=== PATIENT | male | born 1980 | race American Indian/Alaskan Native ===

== ENCOUNTER 2016-12-04 11:27 | Observation (INO) | payer BC ==
[~2016-12-04] VITALS: Ht 175.3 cm; Wt 112.2 kg
[~2016-12-04 11:27] MED LIST: ALPR-475 PO; BUTA1CAP57; DEXAMETHASONE 4 MG/ML, 1ML ONE; HYDR-3240 PO; ONDANSETRON 2MG/ML, 2ML ONE; OXYC-229 PO; PROPOFOL 10 MG/ML, 20ML ONE
[2016-12-04] MEDS ORDERED: SODIUM CHLORIDE 0.9% 1,000ML IVBOLUS ONE ×2 (11:30→14:00)
[2016-12-04] MEDS ORDERED: ONDANSETRON 2MG/ML, 2ML IVPush ONE ×2 (11:30→14:30)
[2016-12-04] MEDS ORDERED: SODIUM CHLORIDE FLUSH 10ML SYR IVF ONE (11:30)
[2016-12-04] MEDS ORDERED: FAMOTIDINE 20 MG/2 ML IVP ONE (11:30)
[2016-12-04] MEDS ORDERED: CIPR250T27 PO (11:42)
[2016-12-04] MEDS ORDERED: ONDANSETRON 2MG/ML, 2ML ONE ×3 (11:47→14:17)
[2016-12-04] MEDS ORDERED: FAMOTIDINE 20 MG/2 ML ONE (11:47)
[2016-12-04 12:02] LABS: ASPARTATE AMINO TRANSFERASE 27 U/L (15-37); BLOOD UREA NITROGEN 21 mg/dL (7-18)
[2016-12-04 12:43] LABS: DIFF TOTAL CELLS COUNTED 100 CELL DIFF
[2016-12-04 12:44] LABS: VERIFY COUNTS? YES
[2016-12-04] MEDS ORDERED: SODIUM CHLORIDE 0.9% 1,000 ML IV ONE (13:48)
[2016-12-04] MEDS ORDERED: IBUPROFEN 200 MG TABLET PO ONE (14:00)
[2016-12-04] MEDS ORDERED: ACETAMINOPHEN 500 MG TABLET PO ONE (14:00)
[2016-12-04] MEDS ORDERED: CEFTRIAXONE PMX 1GM/50ML 50 ML IVPB ONE (14:00)
[2016-12-04] MEDS ORDERED: MORPHINE SULFATE 4 MG/ML, 1ML ONE ×2 (14:01→16:54)
[2016-12-04] MEDS ORDERED: IBUPROFEN 200 MG TABLET ONE (14:02)
[2016-12-04] MEDS ORDERED: CEFTRIAXONE PMX 1GM/50ML 50 ML ONE (14:03)
[2016-12-04] MEDS: MORPHINE SULFATE 4 MG/ML, 1ML IVPush PRN ×2 (14:57→16:56)
[2016-12-04] MEDS ORDERED: FENTANYL PF 250 MCG/5ML ONE (18:03)
[2016-12-04] MEDS ORDERED: MIDAZOLAM 1 MG/ML, 2ML ONE (18:03)
[2016-12-04] MEDS ORDERED: OPIUM/BELLADONNA SUPP.RECT 16.2-30 MG ONE (18:15)
[2016-12-04] MEDS ORDERED: OMNIPAQUE 350 MG/ML, 50 ML BOTTLE ONE (19:01)
[2016-12-04] MEDS ORDERED: OXYcodone 5 MG/5 ML ORAL.SOL UDC ONE (19:33)
[2016-12-04] MEDS ORDERED: FENTANYL PF 100 MCG/2ML ONE (19:33)
[2016-12-04] MEDS: FENTANYL PF 100 MCG/2ML IV PRN ×2 (19:40→19:47)
[2016-12-04] MEDS: OXYcodone 5 MG/5 ML ORAL.SOL UDC PO PRN ×2 (19:40→19:50)
[2016-12-04] MEDS: HYDROmorphone 2 MG/ML, 1ML IVPush PRN ×2 (21:00→21:48)
[2016-12-04] MEDS ORDERED: DIPHENHYDRAMINE 25 MG CAPSULE PO PRN (21:00)
[2016-12-04] MEDS ORDERED: OPIUM/BELLADONNA SUPP.RECT 16.2-30 MG PR PRN (21:00)
[2016-12-04] MEDS ORDERED: ONDANSETRON 2MG/ML, 2ML IVPush PRN (21:00)
[2016-12-04] MEDS: LACTATED RINGERS 1,000 ML IV SCH (21:48)
[2016-12-04] MEDS: KETOROLAC 10MG TABLET PO PRN (22:02)
[2016-12-05] VITALS (8 sets, daily range): BP systolic 137–148; BP diastolic 8–91
[2016-12-05] MEDS: HYDROmorphone 2 MG/ML, 1ML IVPush PRN ×4 (00:43→18:42)
[2016-12-05] MEDS: KETOROLAC 10MG TABLET PO PRN ×2 (05:17→19:33)
[2016-12-05] MEDS: LACTATED RINGERS 1,000 ML IV SCH ×2 (05:18→13:55)
[2016-12-05] MEDS: OXYcodone/APAP 10/325MG TABLET PO PRN ×2 (08:43→12:37)
[2016-12-05] MEDS: DOCUSATE 100 MG CAPSULE PO SCH (08:43)
[2016-12-05] MEDS: PHENAZOPYRIDINE 200 MG TABLET PO PRN ×2 (11:26→19:33)
[2016-12-05] MEDS ORDERED: HYDROmorphone 1 MG/ML, 1ML ONE (13:39)
[2016-12-05] MEDS: TAMSULOSIN 0.4 MG CAP.ER.24H PO SCH (13:55)
[2016-12-05] MEDS ORDERED: CEFTRIAXONE PMX 2GM/50ML 50 ML IV SCH (14:00)
[2016-12-05] MEDS: HYDROmorphone 2MG TABLET PO PRN (16:44)
[2016-12-05] MEDS: MORPHINE SULFATE 4 MG/ML, 1ML IVPush PRN (22:16)
[2016-12-06 02:22] VITALS: BP 135/90
[2016-12-06] MEDS: MORPHINE SULFATE 4 MG/ML, 1ML IVPush PRN ×2 (03:11→08:03)
[2016-12-06] MEDS ORDERED: TAMS0.4C2 PO (03:39)
[2016-12-06] MEDS ORDERED: PHEN-418 PO (03:40)
[2016-12-06] MEDS ORDERED: CIPR500T87 PO (03:41)
[2016-12-06] MEDS: KETOROLAC 10MG TABLET PO PRN (04:15)
[2016-12-06] MEDS: PHENAZOPYRIDINE 200 MG TABLET PO PRN (04:44)
[2016-12-06] MEDS: LACTATED RINGERS 1,000 ML IV SCH ×3 (08:05→10:22)
[2016-12-06] MEDS: DOCUSATE 100 MG CAPSULE PO SCH (09:00)
[2016-12-06 09:06] VITALS: BP 143/98
[2016-12-06] MEDS: TAMSULOSIN 0.4 MG CAP.ER.24H PO SCH (09:06)
[2016-12-06] MEDS: HYDROmorphone 2MG TABLET PO PRN (11:13)
== END 2016-12-06 11:30 | disposition home or self-care (01) ==
LOC: OR 16:48 → INTOOBSV 16:49 → EDIP 16:49 → OR 17:09 → 4NOR 20:25 → DCLOUNGE 12-06 11:19
PROVIDERS: ADMIT Urology; ATTEND Urology
DX: N20.1 Calculus of ureter (principal); G89.29 Other chronic pain; R11.2 Nausea with vomiting, unspecified; Z90.49 Acquired absence of other specified parts of digestive tract
CPT/HCPCS: 36415; 52332; 71010; 74176; 74420; 80053; 81003; 83605; 85025; 87040; 87324; 89055; 96365; 96366; 96375; 96376; 99285; C1758; C1769; C2617; G0378; J0696; J1100; J1170; J2250; J2405; J2704; J3010; J7030; J7120; Q9967; S0028

== ENCOUNTER 2016-12-08 09:39 | Emergency (ER) | payer BC ==
[~2016-12-08] VITALS: Ht 175.3 cm; Wt 102.5 kg
[~2016-12-08 09:39] MED LIST changes: +CIPR250T27 PO; +CIPR500T87 PO; -DEXAMETHASONE 4 MG/ML, 1ML ONE; -ONDANSETRON 2MG/ML, 2ML ONE; +PHEN-418 PO; -PROPOFOL 10 MG/ML, 20ML ONE; +TAMS0.4C2 PO
[2016-12-08] MEDS ORDERED: ONDANSETRON 2MG/ML, 2ML ONE (10:07)
[2016-12-08] MEDS ORDERED: HYDROmorphone 1 MG/ML, 1ML ONE (10:07)
[2016-12-08] MEDS ORDERED: SODIUM CHLORIDE FLUSH 10ML SYR IVF ONE (10:30)
[2016-12-08] MEDS ORDERED: ONDANSETRON 2MG/ML, 2ML IVPush ONE (10:30)
[2016-12-08] MEDS ORDERED: SODIUM CHLORIDE 0.9% 1,000ML IVBOLUS ONE (10:30)
[2016-12-08] MEDS ORDERED: HYDROmorphone 1 MG/ML, 1ML IVPush PRN (10:30)
[2016-12-08 10:42] LABS: ASPARTATE AMINO TRANSFERASE 22 U/L (15-37); BLOOD UREA NITROGEN 16 mg/dL (7-18)
[2016-12-08] MEDS ORDERED: KETOROLAC 30 MG/1 ML ONE (12:15)
[2016-12-08] MEDS ORDERED: KETOROLAC 30 MG/1 ML IVPush ONE (12:30)
[2016-12-08 12:56] VITALS: BP 121/79
== END 2016-12-08 12:59 | disposition home or self-care (01) ==
LOC: ED 12:30
DX: N20.1 Calculus of ureter (principal); R10.9 Unspecified abdominal pain; M54.2 Cervicalgia; G89.29 Other chronic pain; Z90.49 Acquired absence of other specified parts of digestive tract; Z88.5 Allergy status to narcotic agent
CPT/HCPCS: 36415; 76770; 80053; 81001; 85025; 87086; 96361; 96374; 96375; 99285; J1170; J1885; J2405; J7030

== ENCOUNTER 2016-12-11 16:05 | Inpatient (IN) | payer BC ==
[~2016-12-11] VITALS: Ht 175.3 cm; Wt 101.0 kg
[2016-12-11] MEDS ORDERED: ONDANSETRON 2MG/ML, 2ML IVPush ONE (16:30)
[2016-12-11] MEDS ORDERED: SODIUM CHLORIDE FLUSH 10ML SYR IVF ONE (16:30)
[2016-12-11] MEDS ORDERED: HYDROmorphone 1 MG/ML, 1ML ONE ×2 (17:10→18:29)
[2016-12-11] MEDS ORDERED: ONDANSETRON 2MG/ML, 2ML ONE (17:10)
[2016-12-11] MEDS: HYDROmorphone 1 MG/ML, 1ML IVPush PRN ×2 (17:13→18:35)
[2016-12-11 17:24] LABS: BLOOD UREA NITROGEN 15 mg/dL (7-18)
[2016-12-11 17:28] LABS: ASPARTATE AMINO TRANSFERASE 34 U/L (15-37)
[2016-12-11] MEDS ORDERED: SODIUM CHLORIDE 0.9% 1,000ML IVBOLUS ONE (18:30)
[2016-12-11] MEDS ORDERED: CEPHALEXIN 500 MG CAPSULE ONE (19:41)
[2016-12-11] MEDS ORDERED: SODIUM CHLORIDE FLUSH 10ML SYR IVF PRN (20:00)
[2016-12-11] MEDS ORDERED: OXYcodone/APAP 10/325MG TABLET PO PRN (20:30)
[2016-12-11] MEDS ORDERED: ACETAMINOPHEN 325 MG TABLET PO PRN (20:30)
[2016-12-11] MEDS ORDERED: BISACODYL 10 MG SUPP PR PRN (20:30)
[2016-12-11] MEDS ORDERED: ONDANSETRON 2MG/ML, 2ML IVPush PRN (20:30)
[2016-12-11] MEDS ORDERED: POLYETHYLENE GLYCOL 17 GM PACKET PO PRN (20:30)
[2016-12-11 20:47] VITALS: BP 132/89
[2016-12-11] MEDS: SODIUM CHLORIDE 0.9% 1,000 ML IV SCH (20:56)
[2016-12-11] MEDS: PHENAZOPYRIDINE 200 MG TABLET PO SCH (21:00)
[2016-12-11 21:07] VITALS: BP 134/91
[2016-12-11] MEDS: CIPROFLOXACIN 500 MG TABLET PO SCH (21:29)
[2016-12-11] MEDS: HYDROmorphone 2 MG/ML, 1ML IVPush PRN (21:56)
[2016-12-12] MEDS: HYDROmorphone 2 MG/ML, 1ML IVPush PRN ×5 (02:13→19:34)
[2016-12-12 03:50] VITALS: BP 108/63
[2016-12-12] MEDS: SODIUM CHLORIDE 0.9% 1,000 ML IV SCH ×3 (04:10→20:20)
[2016-12-12 05:26] LABS: ASPARTATE AMINO TRANSFERASE 24 U/L (15-37); BLOOD UREA NITROGEN 15 mg/dL (7-18)
[2016-12-12 07:08] VITALS: BP 121/79
[2016-12-12] MEDS: CIPROFLOXACIN 500 MG TABLET PO SCH (08:53)
[2016-12-12] MEDS: TAMSULOSIN 0.4 MG CAP.ER.24H PO SCH (08:58)
[2016-12-12] MEDS: SENNA/DOCUSATE TABLET PO SCH ×2 (08:58→16:49)
[2016-12-12] MEDS: PHENAZOPYRIDINE 200 MG TABLET PO SCH ×3 (08:58→23:22)
[2016-12-12] MEDS ORDERED: CEFTRIAXONE PMX 2GM/50ML 50 ML IV SCH (13:00)
[2016-12-12] MEDS ORDERED: CEFTRIAXONE 2 GM in SODIUM CHLORIDE 0.9% 50 ML IV SCH (13:00)
[2016-12-12] MEDS ORDERED: MIDAZOLAM 1 MG/ML, 2ML ONE (13:28)
[2016-12-12] MEDS ORDERED: FENTANYL PF 250 MCG/5ML ONE (13:29)
[2016-12-12] MEDS ORDERED: CEFAZOLIN 1,000 MG ONE (14:37)
[2016-12-12] MEDS ORDERED: SUCCINYLCHOLINE 20 MG/ML, 10ML ONE (14:37)
[2016-12-12] MEDS ORDERED: ONDANSETRON 2MG/ML, 2ML ONE ×2 (14:37→15:42)
[2016-12-12] MEDS ORDERED: DEXAMETHASONE 4 MG/ML, 1ML ONE (14:37)
[2016-12-12] MEDS ORDERED: ROCURONIUM 10 MG/ML ONE (14:37)
[2016-12-12] MEDS ORDERED: PROPOFOL 10 MG/ML, 20ML ONE (14:37)
[2016-12-12] MEDS ORDERED: HYDROmorphone 2 MG/ML, 1ML ONE ×2 (14:57→15:42)
[2016-12-12] MEDS ORDERED: ONDANSETRON 2MG/ML, 2ML IVPush PRN (15:30)
[2016-12-12] MEDS ORDERED: OXYcodone 5 MG/5 ML ORAL.SOL UDC PO PRN (15:30)
[2016-12-12] MEDS ORDERED: ACETAMINOPHEN 325 MG TABLET PO PRN (15:30)
[2016-12-12] MEDS ORDERED: hydrALAzine 20 MG/ML, 1ML IV PRN (15:30)
[2016-12-12] MEDS ORDERED: LABETALOL 5MG/ML, 20ML IV PRN (15:30)
[2016-12-12] MEDS ORDERED: METOCLOPRAMIDE 5 MG/ML, 2ML IV PRN (15:30)
[2016-12-12] MEDS ORDERED: FENTANYL PF 100 MCG/2ML ONE (15:42)
[2016-12-12] MEDS: FENTANYL PF 100 MCG/2ML IV PRN ×2 (15:45→15:55)
[2016-12-12] MEDS: HYDROmorphone 1 MG/ML, 1ML IV PRN ×4 (15:45→16:12)
[2016-12-12] MEDS ORDERED: OXYcodone 5 MG/5 ML ORAL.SOL UDC ONE (16:00)
[2016-12-12 16:38] VITALS: BP 136/85
[2016-12-12 19:49] VITALS: BP 131/80
[2016-12-13] MEDS: HYDROmorphone 2 MG/ML, 1ML IVPush PRN ×4 (00:39→11:43)
[2016-12-13 04:43] VITALS: BP 116/66
[2016-12-13 05:35] LABS: BLOOD UREA NITROGEN 16 mg/dL (7-18)
[2016-12-13 07:18] VITALS: BP 110/72
[2016-12-13] MEDS: SENNA/DOCUSATE TABLET PO SCH (08:02)
[2016-12-13] MEDS: PHENAZOPYRIDINE 200 MG TABLET PO SCH (08:03)
[2016-12-13] MEDS: TAMSULOSIN 0.4 MG CAP.ER.24H PO SCH (08:03)
[2016-12-13] MEDS: SODIUM CHLORIDE 0.9% 1,000 ML IV SCH (08:35)
[2016-12-13] MEDS ORDERED: ONDA4TAB7 PO (12:13)
[2016-12-13] MEDS ORDERED: KETO10TA PO (12:15)
[2016-12-13] MEDS ORDERED: CIPROFLOXACIN 500 MG TABLET PO ONE (12:30)
== END 2016-12-13 12:51 | disposition home or self-care (01) | DRG 690 ==
LOC: SUATTDRO 19:55 → ED 20:13 → EDIP 20:20 → 3NE 20:44
PROVIDERS: ADMIT Family Medicine; ATTEND Family Medicine
DX: N39.0 Urinary tract infection, site not specified (principal); R17 Unspecified jaundice; R65.10 Systemic inflammatory response syndrome (SIRS) of non-infectious origin without acute organ dysfunction; F11.20 Opioid dependence, uncomplicated; M86.8X8 Other osteomyelitis, other site; G89.29 Other chronic pain; G43.909 Migraine, unspecified, not intractable, without status migrainosus; D72.829 Elevated white blood cell count, unspecified; Z87.442 Personal history of urinary calculi; Z90.49 Acquired absence of other specified parts of digestive tract; Q63.8 Other specified congenital malformations of kidney
CPT/HCPCS: 36415; 74000; 74176; 76000; 80048; 80053; 81001; 82040; 82360; 83690; 85025; 88300; 93005; 96374; 96375; 96376; J0690; J0696; J1100; J1170; J2250; J2405; J2704; J3010; C1769; J0330; J7030

== ENCOUNTER 2018-01-07 00:20 | Emergency (ER) | payer BC ==
[~2018-01-07] VITALS: Ht 175.3 cm; Wt 101.0 kg
[~2018-01-07 00:20] MED LIST changes: +KETO10TA PO; +ONDA4TAB7 PO; -OXYC-229 PO; +OXYC-307 PO
[2018-01-07 00:36] VITALS: BP 142/100
== END 2018-01-07 01:17 | disposition left against medical advice (07) ==
LOC: ED 01:11
DX: F41.9 Anxiety disorder, unspecified (principal); J02.9 Acute pharyngitis, unspecified
CPT/HCPCS: 93005; 99281